=== PATIENT | male | born 1975 | race African-American/Black ===

== ENCOUNTER 2023-07-29 16:10 | Emergency (ER) | payer BC | END 2023-07-29 17:30 | disposition home or self-care (01) | LOC: CSHERS 16:10 | DX: M79.605 Pain in left leg (principal); M54.50 Low back pain, unspecified; K08.89 Other specified disorders of teeth and supporting structures; F17.210 Nicotine dependence, cigarettes, uncomplicated; Z75.3 Unavailability and inaccessibility of health-care facilities | CPT/HCPCS: 99283 ==